=== PATIENT | male | born 1990 | race Caucasian/White ===

== ENCOUNTER 2024-05-02 02:39 | Inpatient (IN) ==
[2024-05-02] MEDS ORDERED: VANCOMYCIN CONSULT ACTIVE PRN (03:02)
--- NOTE | 2024-05-02 03:18 | Emergency Department Note ---
History of Present Illness General Chief complaint: Foot Injury/Pain Stated complaint: LEFT FOOT HAD A NAIL SHOT THRU ON SUNDAY Time Seen by Provider: 05/02/24 02:52 History of Present Illness Maximum Pain Intensity: 8 This 33-year-old male presents the ER complaining of left foot infection. Patient states Sunday he was working in [place] and his nail gun accidentally went off and went through his shoe from his great toe to the lateral aspect of his foot. The ER removed the nail and started him on Levaquin and Cleocin. Patient states since then his foot has become more red and swollen exquisitely painful. He does smoke. No IV drug use. Tetanus is current. Patient denies chest pain, dyspnea, fevers, new trauma to the foot. Past Med/Surg History Problem List (Updated 05/02/24 @ 04:00 by Maria T Brock PA-C) Failure of outpatient treatment (Acute) Cellulitis of left foot (Acute) Puncture wound of foot (Acute) Social History Smoking Status: Current every day smoker Tobacco Type: Cigarettes and E-cigarettes / Vaping Preferred Language: Citizen Of [place] Feels Safe at Home: Yes Review of Systems A total of 10 systems reviewed and were otherwise negative Physical Exam Vital Signs Vital Signs - 24 hr 05/02/24 02:47 05/02/24 03:02 05/02/24 03:27 Temperature 36.6 C Temperature Source Temporal Artery Scan Pulse Rate 91 H 80 76 Pulse Rate [Apical] Pulse Rhythm Regular Pulse Rhythm [Apical] Pulse Strength [Apical] Respiratory Rate 18 18 Respiratory Effort / Characteristics Non-Labored Spontaneous Respiratory Depth Normal Respiratory Pattern Regular Blood Pressure 159/94 H Blood Pressure [Right Arm] Blood Pressure Mean 115 Blood Pressure Mean [Right Arm] Blood Pressure Position Sitting Blood Pressure Position [Right Arm] Pulse Oximetry 98 97 Oxygen Delivery Method Room Air Room Air Sepsis Recent Fever Within 48 Hours No Sepsis New/Unexplained Change in Mental Status N/A Sepsis Action Taken by Nursing No Action Required 05/02/24 03:35 05/02/24 03:46 05/02/24 04:00 Temperature 36.6 C Temperature Source Oral Pulse Rate Pulse Rate [Apical] 70 Pulse Rhythm Pulse Rhythm [Apical] Regular Pulse Strength [Apical] Normal Respiratory Rate 22 20 Respiratory Effort / Characteristics Non-Labored Spontaneous Non-Labored Spontaneous Respiratory Depth Normal Normal Respiratory Pattern Regular Regular Blood Pressure Blood Pressure [Right Arm] 123/89 135/88 Blood Pressure Mean Blood Pressure Mean [Right Arm] 100 103 Blood Pressure Position Blood Pressure Position [Right Arm] Sitting Sitting Pulse Oximetry 96 97 Oxygen Delivery Method Room Air Room Air Sepsis Recent Fever Within 48 Hours Sepsis New/Unexplained Change in Mental Status Sepsis Action Taken by Nursing 05/02/24 06:00 Temperature Temperature Source Pulse Rate Pulse Rate [Apical] 66 Pulse Rhythm Pulse Rhythm [Apical] Regular Pulse Strength [Apical] Normal Respiratory Rate 18 Respiratory Effort / Characteristics Non-Labored Spontaneous Respiratory Depth Normal Respiratory Pattern Regular Blood Pressure Blood Pressure [Right Arm] 127/87 Blood Pressure Mean Blood Pressure Mean [Right Arm] 100 Blood Pressure Position Blood Pressure Position [Right Arm] Lying Pulse Oximetry 97 Oxygen Delivery Method Room Air Sepsis Recent Fever Within 48 Hours Sepsis New/Unexplained Change in Mental Status Sepsis Action Taken by Nursing VITALS: Vitals are noted on the nurse's note and reviewed by myself. Vital signs stable. GENERAL: Pleasant male, in no acute distress, nondiaphoretic, well-developed well-nourished. SKIN: Capillary reflex less than 2 seconds. HEENT: Normocephalic. PERRLA. EOMI. Nares patent. Mucous membranes moist. Neck is supple without nuchal rigidity. HEART: Regular rate and rhythm LUNGS: Clear to auscultation bilaterally without wheezes, rales or rhonchi. No retractions or accessory muscle use. ABDOMEN: Positive bowel sounds x 4. Normal tympanic percussion. Soft, nontender, without masses or organomegaly. Galloway sign negative. No guarding or rebound tenderness. no CVA tenderness MUSCULOSKELETAL: No gross musculoskeletal defects. Left foot erythematous and edematous extending up to the midfoot exquisitely tender to palpation concerning for infection. Pedal pulses +2 equal and present bilaterally. NEURO: Patient was alert and oriented to person place and time. No focal neurological deficits. Course Administered Medications Discontinued Medications Piperacillin Sod/Tazobactam Sod (Zosyn) 4.5 gm in 100 mls @ 200 mls/hr IV NOW ONE; Protocol Stop: 05/02/24 03:31 Last Infusion: 05/02/24 04:19 Dose: Infused Documented By: Admin: 05/02/24 03:48 Dose: 200 mls/hr Documented By: MIMI Vancomycin HCl 2,000 mg/ (Sodium Chloride) 540 mls @ 200 mls/hr IV NOW ONE Stop: 05/02/24 05:43 Last Admin: 05/02/24 04:23 Dose: 200 mls/hr Documented By: MIMI Acetaminophen (Ofirmev) 1,000 mg in 100 mls @ 400 mls/hr IV NOW STA Stop: 05/02/24 03:32 Last Infusion: 05/02/24 03:56 Dose: Infused Documented By: Admin: 05/02/24 03:41 Dose: 400 mls/hr Documented By: MIMI Ioversol (Optiray 320 100ml) 100 ml IV ONCE ONE Stop: 05/02/24 04:20 Last Admin: 05/02/24 04:19 Dose: 93 ml Documented By: YOLANDA Nicotine (Nicotine 21 Mg/24 Hr Tdsy) 1 patch TD NOW STA Stop: 05/02/24 04:45 Last Admin: 05/02/24 04:55 Dose: 1 patch Documented By: MIMI Medical Decision Making Medical Records Attestation: I reviewed the patient's medical records. Home Medications Current Medication List: was personally reviewed by me Laboratory Data Attestation: I reviewed the patient's lab results. 05/02/24 03:10 05/02/24 03:10 Lab Results 05/02/24 05/02/24 05/02/24 Range/Units 03:10 03:32 05:44 WBC 9.07 (4.8-10.8) K/ul RBC 5.13 (4.70-6.10) M/uL Hgb 15.5 (14.0-18.0) g/dl Hct 45.1 (42.0-52.0) % MCV 87.9 (80.0-100.0) fL MCH 30.2 (25.0-34.0) pg MCHC 34.4 (32.0-36.0) g/dL RDW Std Deviation 40.1 (36.4-46.3) fL RDW Coeff of Dinah 12.3 (11.5-14.5) % Plt Count 215 (130-400) K/uL MPV 10.6 (9.4-12.4) fL Immature Gran % (Auto) 0.2 % Neut % (Auto) 68.1 % Lymph % (Auto) 19.0 % [place] % (Auto) 7.9 % Eos % (Auto) 4.5 % Baso % (Auto) 0.3 % Neut # (Auto) 6.17 (1.40-6.50) K/uL Lymph # (Auto) 1.72 (1.20-3.40) K/uL [place] # (Auto) 0.72 H (0.11-0.59) K/uL Eos # (Auto) 0.41 (0.00-0.50) K/uL Baso # (Auto) 0.03 (0.00-0.20) K/uL Immature Gran # (Auto) 0.02 (0.01-0.20) K/uL ESR 28 H (0-15) mm/hr Sodium 137 (136-145) mmol/L Potassium 4.2 (3.5-5.1) mmol/L Chloride 108 H (98-107) mmol/L Carbon Dioxide 25 (21-32) mmol/L Anion Gap 4 (3-11) BUN 25 H (6-23) mg/dl Creatinine 1.05 (0.6-1.4) mg/dl Est Cr Clr Drug Dosing 120.6 ml/min eGFR 94.93 BUN/Creatinine Ratio 23.8 H (10-20) Glucose 88 (70-99(Fasting)) mg/dl Lactate 1.0 (0.4-2.0) mmol/L Calcium 9.2 (8.6-10.3) mg/dl Magnesium 2.0 (1.7-2.4) mg/dl Total Bilirubin 0.4 (0.2-1.0) mg/dl Direct Bilirubin 0.0 (0-0.2) mg/dl AST 24 (13-39) U/L ALT 18 (7-52) U/L Alkaline Phosphatase 67 (34-104) U/L Total Creatine Kinase 79 (30-223) U/L C-Reactive Protein 7.01 H (0-0.5) mg/dl Total Protein 7.2 (6.0-8.3) gm/dl Albumin 4.3 (3.4-5.0) gm/dl Procalcitonin 0.30 (0-0.5) ng/ml Urine Color Yellow Urine Appearance Clear (Clear) Urine pH 6.0 (4.5-7.5) Ur Specific [place] 1.036 H (1.000-1.030) Urine Protein Negative (Negative) Urine Glucose (UA) Negative (Negative) Urine Ketones Negative (Negative) Urine Blood Negative (Negative) Urine Nitrite Negative (Negative) Urine Bilirubin Negative (Negative) Urine Urobilinogen Negative (Negative) Ur Leukocyte Esterase Negative (Negative) Imaging Data Attestation: I personally reviewed and interpreted this imaging study as follows: Radiologist's Impression: Foot CT 05/02/24 03:02 EXAM: CT foot LT w con CLINICAL HISTORY: ? abscess TECHNIQUE: Contiguous axial CT images of left foot and ankle were obtained with intravenous contrast. Coronal and sagittal reconstructions were likewise performed and indicated to increase the sensitivity for detecting clinically relevant pathology. CT scan was performed according to ALARA (as low as reasonably achievable). COMPARISON: none FINDINGS: Mildly displaced chip fracture seen at inferior surface of head of first metatarsal, with mild surrounding edema. No destructive osseous lesion. The visualized muscles and tendons appear grossly unremarkable. No cortical destruction to suggest osteomyelitis. No abscess formation. No significant joint effusion. There are no soft tissue masses. Normal subcutaneous adipose space. IMPRESSION: 1. Mildly displaced chip fracture seen at inferior surface of head of first metatarsal, with mild surrounding edema. Electronically signed by Eddie Pavon 05-02-2024 06:54 AM Foot X-Ray 05/02/24 03:02 EXAM: XR foot LT min 3V routine CLINICAL HISTORY: infx. TECHNIQUE: X-ray images of the left foot were obtained in anteroposterior (AP), lateral, and oblique projections. COMPARISON: No prior studies available for comparison. FINDINGS: Bone Structure: Bone structure is normal and aligned. No evidence of fracture or dislocation. No osseous lesions or abnormalities identified. Joint Spaces: Joint spaces are normal. No evidence of joint effusion or subluxation. Soft Tissues: Mild soft tissue edema is seen adjacent to the 1st metatarsal head. Additional Findings: No signs of osteoarthritis, bone spurs, lytic or sclerotic lesions. IMPRESSION: 1. Mild soft tissue edema is seen adjacent to the 1st metatarsal head. 2. No radiological signs of osteomyelitis/cortical destruction. Disclaimer: A subtle bone abnormality or fracture may not be readily apparent on X-rays, thus clinical correlation and further imaging including follow-up CT, MRI, or follow-up X-rays are advised as needed. Electronically signed by Simon Khan 05-02-2024 05:55 AM MDM Narrative Prior records reviewed and summarized as above. Triage Nursing notes reviewed. Additional history obtained from nursing. The patient's history was concerning for swelling and redness of the skin after nail puncture. Differential diagnosis: Etiologies such as cellulitis, abscess, MRSA infection, DVT, necrotizing fasciitis, dermatitis, drug eruption, as well as others were entertained.. Physical examination: As above ER treatment provided: Zosyn, vancomycin, IV fluids Wound culture taken and sent On reassessment the patient felt better. Diagnostics interpreted by me: The labs Independently Interpreted by myself revealed elevated laboratory markers. No worrisome leukocytosis Wound culture pending, blood cultures pending Negative lactic Imaging studies: Images reviewed and read by radiology Consultation: A consultation was placed with the hospitalist. The case was discussed and diagnostics were reviewed. The patient was evaluated in the ER for further treatment. This appears to be puncture wound to the left foot with surrounding cellulitis. Patient's been on Levaquin and Cleocin. His foot has got much worse. He is quite red and swollen. Cultures taken and sent. He was started on IV antibiotics. Medicine was consulted and the case discussed. He will be evaluated for admission. By the evaluation outlined above emergent etiologies such as necrotizing fasciitis, DVT, as well as others were deemed relatively unlikely. The pt informed about the findings as listed above. All questions were answered and pleased with the treatment. The chart was completed utilizing [employer] Speech voice recognition software. Grammatical errors, random word insertions, pronoun errors, and incomplete sentences are an occassional consequence of this system due to software limitations, ambient noise, and hardware issues. Any formal questions or concerns about the content, text, or information contained within the body of this dictation should be directly addressed to the physician registered dental assistant rda for clarification. Impression & Plan Puncture wound of foot, Cellulitis of left foot, Failure of outpatient treatment Discharge Plan Visit Data Chief Complaint: Foot Injury/Pain Stated Complaint: LEFT FOOT HAD A NAIL SHOT THRU ON SUNDAY ED Provider: Zenaida Lee ED Midlevel Provider: Maria T Brock Discharge Problem: Puncture wound of foot, Cellulitis of left foot, Failure of outpatient treatment Patient Disposition: Admitted As Inpatient Condition: Good Forms Stand Alone Forms: [facility] Referrals Referrals: PCP,NO [Primary Care Provider] - Discharge Problem: Puncture wound of foot Qualifiers: Encounter type: initial encounter Laterality: left Qualified Code(s): S91.332A - Puncture wound without foreign body, left foot, initial encounter
[2024-05-02 03:37] LABS: Basophils # (auto) 0.03 K/uL (0.00-0.20); Basophils % (auto) 0.3 %; Eosinophils # (auto) 0.41 K/uL (0.00-0.50); Eosinophils % (auto) 4.5 %; Hematocrit (blood only) 45.1 % (42.0-52.0); Hemoglobin 15.5 g/dl (14.0-18.0); Immature Granulocytes # (auto) 0.02 K/uL (0.01-0.20); Immature Granulocytes % (auto) 0.2 %; Lymphocytes # (auto) 1.72 K/uL (1.20-3.40); Mean Corpuscular Hemoglobin 30.2 pg (25.0-34.0); Mean Corpuscular Hgb Conc 34.4 g/dL (32.0-36.0); Mean Corpuscular Volume 87.9 fL (80.0-100.0); Mean Platelet Volume 10.6 fL (9.4-12.4); Monocytes # (auto) 0.72 K/uL (0.11-0.59); Monocytes % (auto) 7.9 %; Neutrophils # (auto) 6.17 K/uL (1.40-6.50); Neutrophils % (auto) 68.1 %; Platelet Count 215 K/uL (130-400); RDW Coefficient of Variation 12.3 % (11.5-14.5); RDW Standard Deviation 40.1 fL (36.4-46.3); Red Blood Count 5.13 M/uL (4.70-6.10); White Blood Count 9.07 K/ul (4.8-10.8)
[2024-05-02] MEDS: ACETAMINOPHEN 1,000 MG/100 ML VIAL IV STA (03:41)
[2024-05-02] MEDS: PIPERACILLIN/TAZOBACTAM 4.5 GM/100 ML BAG IV ONE (03:48)
[2024-05-02 03:57] LABS: Albumin Level 4.3 gm/dl (3.4-5.0); BUN Creatinine Ratio 23.8 (10-20); Bilirubin,Total 0.4 mg/dl (0.2-1.0); C Reactive Protein 7.01 mg/dl (0-0.5); Calcium 9.2 mg/dl (8.6-10.3); Creatinine Clr Calc Pharmacy 120.6 ml/min; Potassium 4.2 mmol/L (3.5-5.1); Total Protein 7.2 gm/dl (6.0-8.3)
[2024-05-02] MEDS: OPTIRAY 320 100ml IV ONE (04:19)
[2024-05-02] MEDS: VANCOMYCIN HCL 2,000 MG in SODIUM CHLORIDE 0.9% 500 ML IV ONE (04:23)
[2024-05-02] MEDS: NICOTINE 21 MG/24 HR TDSY TD STA (04:55)
--- NOTE | 2024-05-02 05:21 | History & Physical Report ---
Date of Service May 02, 2024 Assessment & Plan (1) Puncture wound of foot: Plan: 33-year-old male with no significant past medical history comes because of left foot puncture wound and failed outpatient treatment. Patient states last Sunday he was working in [place] and his nail gun accidentally went off and went through his shoe on the medial aspect of the great toe to the lateral aspect of foot. Patient has photo of the x-rays on his phone. He went to the ER there and his nail was removed and was placed on Levaquin and Cleocin and bandages placed and discharged. Patient says he changed dressing yesterday. But the wound is getting worse with swelling and pain so came here. Denies any fevers. Hemodynamics are okay. Denies any headache. No dizziness. No blurred vision. Has chronic cough from smoking. No sore throat. Appetite is okay. No chest pain or shortness of breath. No nausea. No abdominal pain. Normal bowel and bladder movements. Puncture wound of left foot With nail Failed outpatient treatment Er started on iv Vanco and Zosyn which will be continued Will keep n.p.o. for now, IV fluids, pain control Podiatry consult in a.m. for further recommendation Tobacco abuse Counseling DVT prophylaxis SCDs Disposition Medical floor Full code. History of Present Illness Chief Complaint: Left foot puncture wound Primary Care Provider: NO PCP 33-year-old male with no significant past medical history comes because of left foot puncture wound and failed outpatient treatment. Patient states last Sunday he was working in [place] and his nail gun accidentally went off and went through his shoe on the medial aspect of the great toe to the lateral aspect of foot. Patient has photo of the x-rays on his phone. He went to the ER there and his nail was removed and was placed on Levaquin and Cleocin and bandages placed and discharged. Patient says he changed dressing yesterday. But the wound is getting worse with swelling and pain so came here. Denies any fevers. Hemodynamics are okay. Denies any headache. No dizziness. No blurred vision. Has chronic cough from smoking. No sore throat. Appetite is okay. No chest pain or shortness of breath. No nausea. No abdominal pain. Normal bowel and bladder movements. Past medical history. As as mentioned above Past surgical history. Left knee arthroscopy. Left wrist surgery. Inguinal hernia repair. Social history. Smokes 1 pack a day since age 15. No alcohol use. No drug use. Family history. Significant for diabetes. Past Med/Surg History Problem List (Updated 05/02/24 @ 04:00 by Maria T Brock PA-C) Failure of outpatient treatment (Acute) Cellulitis of left foot (Acute) Puncture wound of foot (Acute) Social History Smoking Status: Current every day smoker Tobacco Type: Cigarettes and E-cigarettes / Vaping Preferred Language: [place] Feels Safe at Home: Yes Review of Systems Review of Systems: All systems reviewed & are unremarkable except as noted in HPI & below Physical Exam Physical Exam: General- Not in distress. Head- atraumatic Eyes- PERRL. ENT- oropharynx clear Neck- supple, no JVD. Lungs- clear to auscultation no wheezing or crackles. Heart- regular rate and rhythm; no murmur, no gallop. Abdomen- normal bowel sounds, soft, nontender, no distension Extremities- no pretibial edema, no erythema seen Neuro- alert, oriented PERRL, no facial palsy; no dysarthria; moves extremities Results & Data Results & Data Vital Signs (Past 12 Hours) Vital Signs Temp Pulse Pulse Resp BP BP Pulse Ox 05/02/24 04:00 70 20 135/88 97 05/02/24 03:46 36.6 C 05/02/24 03:35 22 123/89 96 05/02/24 03:27 76 05/02/24 03:02 80 18 97 05/02/24 02:47 36.6 C 91 H 18 159/94 H 98 O2 Del Method 05/02/24 04:00 Room Air 05/02/24 03:46 05/02/24 03:35 Room Air 05/02/24 03:27 05/02/24 03:02 Room Air 05/02/24 02:47 Room Air Diagnostic Findings Laboratory Results WBC 9.07 K/ul (4.8-10.8) 05/02/24 03:10 RBC 5.13 M/uL (4.70-6.10) 05/02/24 03:10 Hgb 15.5 g/dl (14.0-18.0) 05/02/24 03:10 Hct 45.1 % (42.0-52.0) 05/02/24 03:10 MCV 87.9 fL (80.0-100.0) 05/02/24 03:10 MCH 30.2 pg (25.0-34.0) 05/02/24 03:10 MCHC 34.4 g/dL (32.0-36.0) 05/02/24 03:10 RDW Std Deviation 40.1 fL (36.4-46.3) 05/02/24 03:10 RDW Coeff of Dinah 12.3 % (11.5-14.5) 05/02/24 03:10 Plt Count 215 K/uL (130-400) 05/02/24 03:10 MPV 10.6 fL (9.4-12.4) 05/02/24 03:10 Immature Gran % (Auto) 0.2 % 05/02/24 03:10 Neut % (Auto) 68.1 % 05/02/24 03:10 Lymph % (Auto) 19.0 % 05/02/24 03:10 [place] % (Auto) 7.9 % 05/02/24 03:10 Eos % (Auto) 4.5 % 05/02/24 03:10 Baso % (Auto) 0.3 % 05/02/24 03:10 Neut # (Auto) 6.17 K/uL (1.40-6.50) 05/02/24 03:10 Lymph # (Auto) 1.72 K/uL (1.20-3.40) 05/02/24 03:10 [place] # (Auto) 0.72 K/uL (0.11-0.59) H 05/02/24 03:10 Eos # (Auto) 0.41 K/uL (0.00-0.50) 05/02/24 03:10 Baso # (Auto) 0.03 K/uL (0.00-0.20) 05/02/24 03:10 Immature Gran # (Auto) 0.02 K/uL (0.01-0.20) 05/02/24 03:10 ESR 28 mm/hr (0-15) H 05/02/24 03:10 Sodium 137 mmol/L (136-145) 05/02/24 03:10 Potassium 4.2 mmol/L (3.5-5.1) 05/02/24 03:10 Chloride 108 mmol/L (98-107) H 05/02/24 03:10 Carbon Dioxide 25 mmol/L (21-32) 05/02/24 03:10 Anion Gap 4 (3-11) 05/02/24 03:10 BUN 25 mg/dl (6-23) H 05/02/24 03:10 Creatinine 1.05 mg/dl (0.6-1.4) 05/02/24 03:10 Est Cr Clr Drug Dosing 120.6 ml/min 05/02/24 03:10 eGFR 94.93 05/02/24 03:10 BUN/Creatinine Ratio 23.8 (10-20) H 05/02/24 03:10 Glucose 88 mg/dl (70-99(Fasting)) 05/02/24 03:10 Lactate 1.0 mmol/L (0.4-2.0) 05/02/24 03:32 Calcium 9.2 mg/dl (8.6-10.3) 05/02/24 03:10 Magnesium 2.0 mg/dl (1.7-2.4) 05/02/24 03:10 Total Bilirubin 0.4 mg/dl (0.2-1.0) 05/02/24 03:10 Direct Bilirubin 0.0 mg/dl (0-0.2) 05/02/24 03:10 AST 24 U/L (13-39) 05/02/24 03:10 ALT 18 U/L (7-52) 05/02/24 03:10 Alkaline Phosphatase 67 U/L (34-104) 05/02/24 03:10 Total Creatine Kinase 79 U/L (30-223) 05/02/24 03:10 C-Reactive Protein 7.01 mg/dl (0-0.5) H 05/02/24 03:10 Total Protein 7.2 gm/dl (6.0-8.3) 05/02/24 03:10 Albumin 4.3 gm/dl (3.4-5.0) 05/02/24 03:10 Procalcitonin 0.30 ng/ml (0-0.5) 05/02/24 03:10 Code Status & VTE Plan VTE Prophylaxis Plan VTE Prophylaxis will be ordered: Yes (1) Puncture wound of foot Encounter type: initial encounter Laterality: left Qualified Code(s): S91.332A - Puncture wound without foreign body, left foot, initial encounter
--- NOTE | 2024-05-02 05:56 | XRay Report ---
EXAM: XR foot LT min 3V routine CLINICAL HISTORY: infx. TECHNIQUE: X-ray images of the left foot were obtained in anteroposterior (AP), lateral, and oblique projections. COMPARISON: No prior studies available for comparison. FINDINGS: Bone Structure: Bone structure is normal and aligned. No evidence of fracture or dislocation. No osseous lesions or abnormalities identified. Joint Spaces: Joint spaces are normal. No evidence of joint effusion or subluxation. Soft Tissues: Mild soft tissue edema is seen adjacent to the 1st metatarsal head. Additional Findings: No signs of osteoarthritis, bone spurs, lytic or sclerotic lesions. IMPRESSION: 1. Mild soft tissue edema is seen adjacent to the 1st metatarsal head. 2. No radiological signs of osteomyelitis/cortical destruction. Disclaimer: A subtle bone abnormality or fracture may not be readily apparent on X-rays, thus clinical correlation and further imaging including follow-up CT, MRI, or follow-up X-rays are advised as needed. Electronically signed by Simon Khan 05-02-2024 05:55 AM
[2024-05-02 06:04] LABS: Appearance Urine Clear (Clear); Bilirubin Urine Negative (Negative); Blood Urine Negative (Negative); Color Urine Yellow; Glucose Urine UA Negative (Negative); Ketones Urine Negative (Negative); Leukocyte Esterase Urine Negative (Negative); Nitrite Urine Negative (Negative); Protein Urine Negative (Negative); Specific Gravity Urine 1.036 (1.000-1.030); Urobilinogen Urine Negative (Negative)
--- NOTE | 2024-05-02 06:54 | CT Scan Report ---
EXAM: CT foot LT w con CLINICAL HISTORY: ? abscess TECHNIQUE: Contiguous axial CT images of left foot and ankle were obtained with intravenous contrast. Coronal and sagittal reconstructions were likewise performed and indicated to increase the sensitivity for detecting clinically relevant pathology. CT scan was performed according to ALARA (as low as reasonably achievable). COMPARISON: none FINDINGS: Mildly displaced chip fracture seen at inferior surface of head of first metatarsal, with mild surrounding edema. No destructive osseous lesion. The visualized muscles and tendons appear grossly unremarkable. No cortical destruction to suggest osteomyelitis. No abscess formation. No significant joint effusion. There are no soft tissue masses. Normal subcutaneous adipose space. IMPRESSION: 1. Mildly displaced chip fracture seen at inferior surface of head of first metatarsal, with mild surrounding edema. Electronically signed by Eddie Pavon 05-02-2024 06:54 AM
[2024-05-02] MEDS: Patient's ALLERGY Info needs ENTERED STA (07:59)
[2024-05-02] MEDS: oxyCODONE HCL IR 5 MG TAB (IMMEDIATE RELEASE) PO STA ×2 (08:32→11:51)
[2024-05-02 08:57] VITALS: O2SAT 98
[2024-05-02] MEDS ORDERED: POLYETHYLENE (MIRALAX) 17 GM PACK PO PRN (08:58)
[2024-05-02] MEDS ORDERED: oxyCODONE HCL IR 5 MG TAB (IMMEDIATE RELEASE) PO PRN (08:58)
[2024-05-02] MEDS ORDERED: ACETAMINOPHEN 325 MG TAB PO PRN (08:58)
[2024-05-02] MEDS: PIPERACILLIN/TAZOBACTAM 4.5 GM/100 ML BAG IV SCH (10:08)
[2024-05-02] MEDS: SODIUM CHLORIDE 0.9% 1,000 ML IV SCH (10:08)
[2024-05-02 10:10] LABS: Basophils # (auto) 0.03 K/uL (0.00-0.20); Basophils % (auto) 0.3 %; Eosinophils # (auto) 0.31 K/uL (0.00-0.50); Eosinophils % (auto) 3.6 %; Hematocrit (blood only) 44.3 % (42.0-52.0); Hemoglobin 15.2 g/dl (14.0-18.0); Immature Granulocytes # (auto) 0.03 K/uL (0.01-0.20); Immature Granulocytes % (auto) 0.3 %; Lymphocytes # (auto) 1.42 K/uL (1.20-3.40); Lymphocytes % (auto) 16.3 %; Mean Corpuscular Hemoglobin 30.3 pg (25.0-34.0); Mean Corpuscular Hgb Conc 34.3 g/dL (32.0-36.0); Mean Corpuscular Volume 88.2 fL (80.0-100.0); Mean Platelet Volume 10.3 fL (9.4-12.4); Monocytes # (auto) 0.61 K/uL (0.11-0.59); Neutrophils # (auto) 6.33 K/uL (1.40-6.50); Neutrophils % (auto) 72.5 %; Platelet Count 187 K/uL (130-400); RDW Coefficient of Variation 12.4 % (11.5-14.5); Red Blood Count 5.02 M/uL (4.70-6.10); White Blood Count 8.73 K/ul (4.8-10.8)
--- NOTE | 2024-05-02 10:10 | Pharmacy Report ---
Pharmacy PK ABX Note - Date of Service May 02, 2024 - Assessment and Plan Assessment * 33 year old M receiving pip/tazo and vancomycin for treatment of foot infection due to nail gun wound through shoe that failed outpatient therapy (levofloxacin plus clindamycin). * No pertinent PMH * Pertinent microbiologic data includes: blood and foot cultures pending Plan Vancomycin * Loading dose: 2000 mg IV x 1 * Maintenance dose: 1500 mg IV every 12 hours * Target AUC/ELROY of 400-600 mg/L.hr * Trough level ordered for 05/04 @ 0530 Pharmacy will continue to follow and will adjust dose/frequency as necessary. Thank you. Pharmacy has transitioned to AUC monitoring for vancomycin. AUC/ELROY is the preferred PK/PD target and is associated with decreased risk of nephrotoxicity compared to traditional trough targets.
[2024-05-02 10:26] LABS: Calcium 8.8 mg/dl (8.6-10.3); Creatinine Clr Calc Pharmacy 126.6 ml/min; Potassium 4.2 mmol/L (3.5-5.1)
[2024-05-02 10:50] VITALS: RESP 17; TEMP 97.7
[2024-05-02 15:14] VITALS: BP 155/73; PULSE 68
--- NOTE | 2024-05-02 17:44 | Discharge Summary ---
Discharge Summary Date of Service May 02, 2024 Principal Dx & Hospital Course #1 = Principal Diagnosis Notes For Next Care Provider 33-year-old male with no significant past medical history comes because of left foot puncture wound and failed outpatient treatment. On medicine, given IV abx. Lab work very reassuring for minimal systemic infection given normal hemodynamics and no leukocytosis. Discussed case with podiatry, stable for discharge to follow up in podiatry clinic. Will discuss boot and further treatment at that time. Discharged with abx and pain medication. Medication Changes From Visit -see below Admission HPI Per Admitting Provider 33-year-old male with no significant past medical history comes because of left foot puncture wound and failed outpatient treatment. Patient states last Sunday he was working in [place] and his nail gun accidentally went off and went through his shoe on the medial aspect of the great toe to the lateral aspect of foot. Patient has photo of the x-rays on his phone. He went to the ER there and his nail was removed and was placed on Levaquin and Cleocin and bandages placed and discharged. Patient says he changed dressing yesterday. But the wound is getting worse with swelling and pain so came here. Denies any fevers. Hemodynamics are okay. Denies any headache. No dizziness. No blurred vision. Has chronic cough from smoking. No sore throat. Appetite is okay. No chest pain or shortness of breath. No nausea. No abdominal pain. Normal bowel and bladder movements. Past medical history. As as mentioned above Past surgical history. Left knee arthroscopy. Left wrist surgery. Inguinal hernia repair. Social history. Smokes 1 pack a day since age 15. No alcohol use. No drug use. Family history. Significant for diabetes. Discharge Exam Gen: A&O 3 NAD HEENT: NCAT, EOMI, not icteric. External ears normal. No rhinorrhea. Moist mucous membranes. Neck: Supple, full range of motion, no observable masses, No meningeal sign. Lungs: No Respiratory distress. CV: RRR, no edema. Abdomen: Soft, nondistended, No rebound tenderness. MSK: No joint swelling, no redness. Skin: left foot nail puncture wound, bloody dried drainage, mild edema, tender to palpation. Neuro: Normal Gait, Grossly intact. Psych: Appropriate for situation. Updated Medication List Medication Instructions Recorded Confirmed Type amoxicillin 500 mg-potassium 1 tab PO BID 10 days #20 tabs 05/02/24 Rx clavulanate 125 mg tablet (Augmentin) oxycodone 5 mg tablet 5 mg PO Q6H PRN pain 7 days #28 05/02/24 Rx tabs pregabalin 25 mg capsule 25 mg PO TID #21 caps 05/02/24 Rx Hospital Stay Data Consultations 05/02/24 03:59 ED Decision to Admit Stat 05/02/24 08:19 Consult Podiatry Routine 05/02/24 08:58 Consult Podiatry Routine Diagnostic Imagining Performed 05/02/24 03:02 CT foot LT w con Stat Pending Results Patient Have Any Pending Studies at Discharge: No Discharge Instructions Given to Patient (Per Discharging Provider) 1. Please take medications as prescribed. 2. Podiatry will be calling you with follow up appointment for early next week. Total Time Total Time Spent Total Time Spent (In Minutes): I spent a total of 35 minutes in direct patient care, including [id number] time with the patient and/or family, reviewing medical records, ordering and reviewing diagnostic tests, and coordinating care with other healthcare providers. This time includes: history taking, physical examination, medical decision making, counseling, ECG interpretation, imaging interpretation, lab interpretation, orders, and education, excluding time spent in the performance of separately billed services.
[2024-05-02] MEDS ORDERED: VANCOMYCIN HCL 1,500 MG in SODIUM CHLORIDE 0.9% 500 ML IV SCH (18:00)
[2024-05-04] MEDS ORDERED: VANCOMYCIN LEVEL ONE (05:30)
== END 2024-05-02 15:02 | disposition home or self-care (01) | DRG 914 ==
LOC: ED 02:39 → EDINP 05:15 → SUATTDRO 05:15 → EDINP 08:59